=== PATIENT | male | born 1985 | race Caucasian/White ===

== ENCOUNTER 2024-08-14 15:52 | Emergency (ER) | payer SELFPAY ==
--- NOTE | 2024-08-14 17:33 | RAD REPORT ---
EXAM: Chest Single View HISTORY: black stools COMPARISON: None. FINDINGS: LUNGS/PLEURA: The lungs are clear. No pleural effusions or pneumothorax. No pulmonary edema. MEDIASTINUM: The mediastinal silhouette is within normal limits. CARDIAC: The cardiac silhouette is within normal limits. UPPER ABDOMEN: No significant abnormality. BONES: No acute abnormality. LINES/TUBES/OTHER: N/A IMPRESSION: No evidence of acute cardiopulmonary disease.
[2024-08-14 17:50] LABS: Absolute Lymphocytes (CBC) 2.2 K/uL (0.7-4.9); Absolute Monocytes 0.4 K/uL (0.1-1.3); Absolute Neutrophil 4.8 K/uL (1.8-8.0); Basophils % 0.4 % (0-1.3); Eosinophils % 0.5 % (0-4.4); Hematocrit 49.6 % (39.6-49.0); Hemoglobin 17.4 g/dL (13.6-17.9); Lymphocytes % 29.2 % (15.3-44.8); MCH 31.4 pg (27.0-35.0); MCHC 35.1 g/dL (32.0-36.0); MCV 89.2 fL (80-100); MPV 8.8 fL (7.6-11.3); Monocytes % 5.3 % (3.3-12.3); Neutrophils % 64.6 % (41.7-73.7); Nucleated Red Blood Cells % 0.2 % (0-0); Platelets 207 thou/uL (152-406); RBC Red Blood Cell Count 5.55 M/uL (4.33-5.43); Red Cell Distribution Width 12.8 % (12.1-15.2)
[2024-08-14 17:52] LABS: Specific Gravity 1.016 (1.005-1.030); Urine Bilirubin NEGATIVE (Negative); Urine Blood Negative (Negative); Urine Clarity Clear (Clear); Urine Color Light-Yellow (Yellow); Urine Glucose NEGATIVE (Negative); Urine Ketones NEGATIVE (Negative); Urine Microscopic Reflex YN NO UMIC; Urine Nitrite NEGATIVE (Negative); Urine Protein NEGATIVE (Negative); Urine Urobilinogen Normal (Normal)
[2024-08-14 17:58] LABS: PT Prothrombin Time 11.4 SECONDS (9.4-12.5); PTT, Activated Partial Thromb 29.2 SECONDS (24.3-36.9); Protime INR 1.09
[2024-08-14 18:05] LABS: Barbiturates NEGATIVE (NEGATIVE); Benzodiazepines NEGATIVE (NEGATIVE); Cocaine NEGATIVE (NEGATIVE); METHAMPHETAM NEGATIVE (NEGATIVE); Methadone NEGATIVE (NEGATIVE); Opiates NEGATIVE (NEGATIVE); Phencyclidine NEGATIVE (NEGATIVE); THC Cannibis NEGATIVE (NEGATIVE)
[2024-08-14 18:08] LABS: ALT/SGPT 29 U/L (16-61); AST/SGOT 24 U/L (15-37); Albumin/Globulin Ratio 1.1 (1.1-1.8); Alkaline Phosphatase 49 U/L (45-117); Anion Gap 10.8 mEq/L (5.0-15.0); BUN Blood Urea Nitrogen 9 mg/dL (7-18); Bicarbonate 26 mEq/L (21-32); Bilirubin Total 0.5 mg/dL (0.2-1.0); Globulin 3.8 g/dL (2.3-3.5); Glomerular Filtration Rate 86 ml/min (=/>90); Glucose Level 104 mg/dL (74-106); Magnesium 2.1 mg/dL (1.6-2.4); Potassium 3.8 mEq/L (3.5-5.1); Protein, Total 7.8 g/dL (6.4-8.2); Sodium Level 142 mEq/L (136-145)
[2024-08-14 18:17] LABS: Bilirubin Direct < 0.2 mg/dL (0-0.2); Bilirubin Indirect, Calculated 0.3 mg/dL (0.2-0.8); Troponin High Sensitivity < 3.0 pg/mL (<58.9)
--- NOTE | 2024-08-14 19:34 | RAD REPORT ---
EXAMINATION: CT ABDOMEN AND PELVIS WITH CONTRAST CLINICAL INDICATION: Male, 39 years old.ABD PAIN TECHNIQUE: CT abdomen and pelvis was performed, after the administration of IV contrast, [facility]. Axial, sagittal and coronal reconstructions were obtained. One or more of the following dose reduction techniques were used: Automated exposure control, adjustment of the mA and/o r kV according to patient size, and/or iterative reconstruction. Unless otherwise specified, incidental findings do not require dedicated imaging follow-up. [id number]. COMPARISON: No prior exam. FINDINGS: LOWER CHEST: No acute process identified.No significant pericardial effusion. Mild circumferential th ickening of the distal esophagus which could reflect esophagitis. UPPER GI: No significant abnormality. LIVER: Hepatic steatosis, but otherwise unremarkable. GALLBLADDER/BILE DUCTS: No biliary ductal dilatation.? PANCREAS: No mass, ductal dilation, or daphney-pancreatic fluid. SPLEEN: Unremarkable. ADRENALS: No adrenal masses. KIDNEYS AND URETERS: No hydronephrosis.No suspicious renal mass. ABDOMINAL AORTA AND OTHER VESSELS: Normal caliber aorta and IVC. PERITONEUM: No abnormal free fluid. No free air. LYMPH NODES: No pathologic lymphadenopathy. ABDOMINAL WALL: Small fat containing umbilical hernia. Small fat-containing left inguinal hernia. SMALL BOWEL/COLON: Underdistended colon but with suspected wall thickening involving the transverse c olon and descending colon.Normal appendix. URINARY BLADDER: Underdistended but grossly unremarkable. REPRODUCTIVE ORGANS: No pathologic process. MUSCULOSKELETAL: No acute or suspicious osseous abnormality. ADDITIONAL FINDINGS: None. IMPRESSION: Wall thickening extending from the mid transverse colon through the descending colon concerning for m ild colitis. Normal appendix. No other acute findings identified.
[2024-08-14] MEDS ORDERED: AMOX/K CLAV 875 MG TAB ONE (20:28)
[2024-08-14] MEDS ORDERED: dexAMETHasone 10 MG/ML VIAL ONE (20:28)
--- NOTE | 2024-08-14 21:55 | ER ---
Nurse's Notes [facility] Name: Satnam Son Age: 39 yrs Sex: Male : 1985 Arrival Date: 08/14/2024 Time: 15:52 Bed 20 Private MD: Diagnosis: Alcohol abuse with intoxication;Indeterminate colitis Presentation: 08/14 16:01 Chief complaint: Patient states: Black stools for a few days. N/V with dizziness ll1 started today. States he drinks nightly, only 6 shots of vodka this morning. Weak, shaky, unbalanced. Coronavirus screen: Client denies travel out of the [place] in the last 14 days. At this time, the client does not indicate any symptoms associated with coronavirus-19. Ebola Screen: Patient denies travel to an Ebola-affected area in the 21 days before illness onset. Initial Sepsis Screen: Does the patient meet any 2 criteria? No. Patient's initial sepsis screen is negative. Does the patient have a suspected source of infection? No. Patient's initial sepsis screen is negative. Risk Assessment: Do you want to hurt yourself or someone else? Patient reports no desire to harm self or others. Onset of symptoms was August 14, 2024. 16:01 Method Of Arrival: Ambulatory ll1 16:01 Acuity: NANI 3 ll1 Triage Assessment: 16:03 General: Appears distressed, uncomfortable, Behavior is calm, cooperative, appropriate ll1 for age. Pain: Denies pain. Neuro: Reports weakness. GI: Reports rectal bleeding, bloody stool, black stools. Historical: - Allergies: 16:03 No Known Allergies; ll1 - Home Meds: 16:03 None [Active]; ll1 - PMHx: 16:03 Hypertensive disorder; no meds; ll1 - PSHx: 16:04 hernia repair; ll1 - Immunization history:: Adult Immunizations up to date. - Infectious Disease History:: Denies. - Social history:: Smoking status: Patient denies any tobacco usage or history of. Patient uses alcohol, on a daily basis. Screenin:41 [facility] ED Fall Risk Assessment (Adult) History of falling in the last 3 months, kc6 including since admission No falls in past 3 months (0 pts) Confusion or Disorientation No (0 pts) Intoxicated or Sedated No (0 pts) Impaired Gait No (0 pts) Mobility Assist Device Used No (0 pt) Altered Elimination No (0 pt) Score/Fall Risk Level 0 - 2 = Low Risk Oriented to surroundings, Maintained a safe environment, Educated pt \T\ family on fall prevention, incl call for assistance when getting out of bed. Abuse screen: Denies threats or abuse. Denies injuries from another. Nutritional screening: No deficits noted. Tuberculosis screening: No symptoms or risk factors identified. 19:24 Exposure risk/Travel Screening: None identified. mt4 Assessment: 17:41 General: Appears in no apparent distress. comfortable, well groomed, well developed, kc6 Behavior is calm, cooperative, appropriate for age, Smells of alcohol. Pain: Denies pain. Neuro: Level of Consciousness is awake, alert, obeys commands, Oriented to person, place, time, situation, Appropriate for age Reports dizziness, weakness. Cardiovascular: Denies chest pain, shortness of breath, Capillary refill < 3 seconds. Respiratory: Airway is patent Trachea midline Respiratory effort is even, unlabored, Respiratory pattern is regular, symmetrical. GI: Abdomen is round non-distended, Bowel sounds present X 4 quads. Abd is soft and non tender X 4 quads. Reports nausea, vomiting, Patient currently denies abdominal pain, diarrhea. : Urine is clear. EENT: No signs and/or symptoms were reported regarding the EENT system. Derm: No signs and/or symptoms reported regarding the dermatologic system. Skin is intact, is healthy with good turgor, Skin is pink, warm \T\ dry. Musculoskeletal: No signs and/or symptoms reported regarding the musculoskeletal system. Circulation, motion, and sensation intact. Range of motion: intact in all extremities. 18:51 Reassessment: Patient appears in no apparent distress at this time. No changes from kc6 previously documented assessment. Patient and/or family updated on plan of care and expected duration. Pain level reassessed. Patient is alert, oriented x 3, equal unlabored respirations, skin warm/dry/pink. 19:24 Reassessment: Patient and/or family updated on plan of care and expected duration. Pain mt4 level reassessed. General: Appears in no apparent distress. comfortable, Behavior is calm, cooperative, appropriate for age. Pain: Denies pain. Neuro: Level of Consciousness is awake, alert, obeys commands, Oriented to person, place, time, situation, Appropriate for age Service Technician are equal bilaterally Moves all extremities. Gait is steady, Speech is normal, Facial symmetry appears normal. GI: Reports bloody stool, nausea. : Denies burning with urination. Musculoskeletal: Range of motion: intact in all extremities. 21:00 Reassessment: Patient and/or family updated on plan of care and expected duration. Pain mt4 level reassessed. Patient states feeling better. 22:34 Reassessment: Patient and/or family updated on plan of care and expected duration. Pain mt4 level reassessed. Patient states feeling better. Vital Signs: 16:01 BP 138 / 95; Pulse 102; Resp 18; Temp 97.5; Pulse Ox 99% ; Weight 86.18 kg; Height 5 ll1 ft. 10 in. ; Pain 0/10; 19:23 BP 133 / 101; Pulse 95; Resp 17; Temp 99.2(O); Pulse Ox 98% on R/A; mt4 20:00 BP 125 / 92; Pulse 85; Resp 20; Pulse Ox 96% ; mt4 21:00 BP 126 / 79; Pulse 91; Resp 19; Pulse Ox 96% ; mt4 16:01 Body Mass Index 27.26 (86.18 kg, 177.8 cm) ll1 16:01 Pain Scale: Adult ll1 Praneeth Coma Score: 19:24 Eye Response: spontaneous(4). Motor Response: obeys commands(6). Verbal Response: mt4 oriented(5). Total: 15. ED Course: 15:56 Patient arrived in ED. im 15:57 Arm band placed on. ll1 15:58 Kobe Hester PA is PHCP. cp 15:58 Kobe Cerna MD is Attending Physician. cp 16:03 Triage completed. ll1 17:16 XRAY Chest (1 view) In Process Unspecified. EDMS 17:24 Evelyn Galvez, BAKARI is Primary Nurse. kc6 17:40 Initial lab(s) drawn, by me, sent to lab. Urine collected: clean catch specimen, clear. kc6 Inserted saline lock: 20 gauge in right antecubital area, using aseptic technique. Blood collected. Flushed with 10 mL NS. Patient maintains SpO2 saturation greater than 95% on room air. 17:41 Patient has correct armband on for positive identification. Placed in gown. Bed in low kc6 position. Call light in reach. Side rails up X 1. Pulse ox on. NIBP on. Door closed. Noise minimized. Lights dimmed. Pillow given. 17:59 EKG done, by ED staff, reviewed by Kobe NAQVI. kc6 19:01 Report given to BAKARI Velez. kc6 19:05 CT Abd/Pelvis - IV Contrast Only In Process Unspecified. EDMS 19:24 Provided Education on: labs and vitals. Door closed. Lights dimmed. Warm blanket given. mt4 Pillow given. Verbal reassurance given. Assisted to bathroom. 21:54 Martínez Pat MD is Referral Physician. cp 22:35 No provider procedures requiring assistance completed. IV discontinued, intact, mt4 bleeding controlled, No redness/swelling at site. Pressure dressing applied. Patient maintains SpO2 saturation greater than 95% on room air. Administered Medications: 20:55 Drug: Dexamethasone IVP 10 mg IVP once; (not to exceed 40 mg) Route: IVP; Site: right mt4 antecubital; 21:32 Follow up: Response: No adverse reaction mt4 20:56 Drug: Amoxicillin-Clavulanate PO 875 mg PO once Route: PO; mt4 21:32 Follow up: Response: No adverse reaction mt4 Medication: 19:24 VIS not applicable for this client. mt4 Outcome: 21:54 Discharge ordered by . cp 22:35 Condition: stable mt4 22:35 Discharge instructions given to patient, Instructed on discharge instructions, follow up and referral plans. medication usage, Demonstrated understanding of instructions, follow-up care, medications, Prescriptions given X 1, 22:36 Discharged to home mt4 22:36 Patient left the ED. mt4 Signatures: Dispatcher [employer] EDMS Kobe Hester PA PA cp Ginger Reyes RN RN ll1 Evelyn Galvez RN RN kc6 Una Lucero Molinec, BAKARI RN mt4 Corrections: (The following items were deleted from the chart) 16:14 16:01 Chief complaint: Patient states: Black stools for a few days. N/V with dizziness ll1 started today. States he drinks nightly, only 6 shots of vodka this morning. Weak, shaky, unbalanced ll1
--- NOTE | 2024-08-14 21:55 | EDPHYS ---
Physician Documentation [facility] Name: Satnam Son Age: 39 yrs Sex: Male : 1985 Arrival Date: 08/14/2024 Time: 15:52 Bed 20 Private MD: ED Physician Kobe Cerna HPI: 08/14 16:20 This 39 yrs old Male presents to ER via Ambulatory with complaints of Black/Tarry cp Stools, Alcohol Withdrawal. 16:20 The patient presents to the emergency department with rectal bleeding, dark red blood cp with bowel movement with multiple such episodes, intermittent. Onset: The symptoms/episode began/occurred intermittent for past several months, persistent for past few days. 16:20 Abdominal pain: described as waxing and waning. Associated signs and symptoms: cp Pertinent negatives: chest pain, constipation, diarrhea, fever, vomiting. Historical: - Allergies: 16:03 No Known Allergies; ll1 - Home Meds: 16:03 None [Active]; ll1 - PMHx: 16:03 Hypertensive disorder; no meds; ll1 - PSHx: 16:04 hernia repair; ll1 - Immunization history:: Adult Immunizations up to date. - Infectious Disease History:: Denies. - Social history:: Smoking status: Patient denies any tobacco usage or history of. Patient uses alcohol, on a daily basis. ROS: 16:25 Constitutional: Negative for body aches, chills, fever, poor PO intake, cp 16:25 Eyes: Negative for injury, pain, redness, and discharge, cp 16:25 ENT: Negative for drainage from ear(s), ear pain, sore throat, difficulty swallowing, difficulty handling secretions, 16:25 Cardiovascular: Negative for chest pain, 16:25 Respiratory: Negative for cough, shortness of breath, wheezing, 16:25 Abdomen/GI: Positive for dark colored stools, Negative for abdominal pain, vomiting, diarrhea, constipation, 16:25 Neuro: Negative for altered mental status, headache, syncope, near syncope, weakness, 16:25 Psych: Positive for alcohol dependence, 16:25 All other systems are negative, Exam: 16:30 Constitutional: The patient appears in no acute distress, alert, awake, comfortable, cp non-toxic, well developed, well nourished, smells of alcohol, 16:30 Head/Face: Normocephalic, atraumatic. cp 16:30 Eyes: Periorbital structures: appear normal, Conjunctiva: normal, no exudate, no injection, Sclera: no appreciated abnormality, Lids and lashes: appear normal, bilaterally, 16:30 ENT: External ear(s): are unremarkable, Nose: is normal, Mouth: Lips: moist, Oral mucosa: moist, Posterior pharynx: Airway: no evidence of obstruction, patent, erythema, is not appreciated, exudate, is not appreciated, 16:30 Neck: ROM/movement: is normal, is supple, without pain, no range of motions limitations, 16:30 Chest/axilla: Inspection: normal, 16:30 Cardiovascular: Rate: tachycardic, Rhythm: regular, Edema: is not appreciated, JVD: is not appreciated, 16:30 Respiratory: the patient does not display signs of respiratory distress, Respirations: normal, no use of accessory muscles, no retractions, labored breathing, is not present, Breath sounds: are clear throughout, no decreased breath sounds, no stridor, no wheezing, 16:30 Abdomen/GI: Inspection: abdomen appears normal, Bowel sounds: active, all quadrants, Palpation: abdomen is soft and non-tender, in all quadrants, Rectal exam: Stool: dark brown, negative for gross blood, 16:30 Neuro: Orientation: to person, place \T\ time. Mentation: is normal, Motor: moves all fours, strength is normal, Sensation: is normal, 17:55 ECG was reviewed by the Attending Physician. cp Vital Signs: 16:01 BP 138 / 95; Pulse 102; Resp 18; Temp 97.5; Pulse Ox 99% ; Weight 86.18 kg; Height 5 ll1 ft. 10 in. ; Pain 0/10; 19:23 BP 133 / 101; Pulse 95; Resp 17; Temp 99.2(O); Pulse Ox 98% on R/A; mt4 20:00 BP 125 / 92; Pulse 85; Resp 20; Pulse Ox 96% ; mt4 21:00 BP 126 / 79; Pulse 91; Resp 19; Pulse Ox 96% ; mt4 16:01 Body Mass Index 27.26 (86.18 kg, 177.8 cm) 1 16:01 Pain Scale: Adult ll1 Praneeth Coma Score: 19:24 Eye Response: spontaneous(4). Motor Response: obeys commands(6). Verbal Response: mt4 oriented(5). Total: 15. MDM: 16:11 Medical Screening Exam initiated cp 17:00 Differential diagnosis: gastritis, diverticulitis, hemorrhoids, varices, upper GI cp bleed, lower GI bleed, anemia, hepatic failure. 21:53 Data reviewed: vital signs, nurses notes, lab test result(s), EKG, radiologic studies, cp CT scan, plain films, and as a result, I will discharge patient. 21:53 Consideration of Admission/Observation Escalation of care including cp admission/observation considered. Independent interpretation of the following test(s) in the Emergency Department EKG: See my EKG interpretation above. Care significantly affected by the following chronic conditions: Hypertension. Counseling: I had a detailed discussion with the patient and/or guardian regarding the historical points, exam findings, and any diagnostic results supporting the discharge/admit diagnosis, lab results, radiology results, to return to the emergency department if symptoms worsen or persist or if there are any questions or concerns that arise at home. ED course: VSS. Labs and radiology studies reviewed. H/H stable, no black/tarry and/or grossly bloody stools on exam. Will discharge to home for continued monitoring. 08/14 16:16 Order name: Basic Metabolic Panel; Complete Time: 18:23 cp 08/14 18:24 Interpretation: Normal except: CL 109; GFR 86. cp 08/14 16:16 Order name: CBC with Diff; Complete Time: 18:23 cp 08/14 18:24 Interpretation: Normal except: RBC 5.55; HCT 49.6. cp 08/14 16:16 Order name: LFT's; Complete Time: 18:23 cp 08/14 18:24 Interpretation: Normal except: GLOB 3.8. cp 08/14 16:16 Order name: Magnesium; Complete Time: 18:23 cp 08/14 16:16 Order name: PT-INR; Complete Time: 18:23 cp 08/14 16:16 Order name: Troponin HS; Complete Time: 18:24 cp 08/14 16:16 Order name: Ptt, Activated; Complete Time: 18:24 cp 08/14 16:16 Order name: ETOH Level; Complete Time: 18:23 cp 08/14 18:24 Interpretation: Normal except: ETOH 224. cp 08/14 16:16 Order name: UDS; Complete Time: 18:24 08/14 16:16 Order name: Urinalysis w/ reflexes; Complete Time: 18:24 08/14 16:16 Order name: XRAY Chest (1 view); Complete Time: 18:24 08/14 18:25 Order name: CT Abd/Pelvis - IV Contrast Only; Complete Time: 19:38 08/14 19:39 Interpretation: Report reviewed. 08/14 16:16 Order name: EKG; Complete Time: 16:17 08/14 16:16 Order name: Cardiac monitoring; Complete Time: 17:59 08/14 16:16 Order name: EKG - Nurse/Tech; Complete Time: 17:59 08/14 16:16 Order name: IV Saline Lock; Complete Time: 17:40 08/14 16:16 Order name: Labs collected and sent; Complete Time: 17:40 08/14 16:16 Order name: O2 Per Protocol; Complete Time: 17:40 08/14 16:16 Order name: O2 Sat Monitoring; Complete Time: 17:40 EC:55 Rate is 94 beats/min. Rhythm is regular. MO interval is normal. QRS interval is cp prolonged at 140 msec. QT interval is normal. T waves are Inverted in lead aVR. Interpreted by me. Reviewed by me. Administered Medications: 20:55 Drug: Dexamethasone IVP 10 mg IVP once; (not to exceed 40 mg) Route: IVP; Site: right mt4 antecubital; 21:32 Follow up: Response: No adverse reaction mt4 20:56 Drug: Amoxicillin-Clavulanate PO 875 mg PO once Route: PO; mt4 21:32 Follow up: Response: No adverse reaction mt4 Disposition Summary: 08/14/24 21:54 Discharge Ordered Notes: Location: Home cp Problem: new cp Symptoms: have improved cp Condition: Stable cp Diagnosis - Alcohol abuse with intoxication cp - Indeterminate colitis cp Followup: cp - With: Martínez Pat MD - When: 5 - 6 days - Reason: colitis Discharge Instructions: - Discharge Summary Sheet cp - Alcohol Intoxication cp - Alcohol Abuse and Nutrition cp - Colitis cp - Alcohol Abuse and Dependence Information, Adult cp Forms: - Medication Reconciliation Form cp - Antibiotic Education cp - Prescription Opioid Use cp - Patient Portal Instructions cp - Leadership Thank You Letter Prescriptions: - Augmentin 875-125 mg Oral Tablet - take 1 tablet ORAL route every 12 hours for 10 days; 20 tablet; Refills: 0, cp Product Selection Permitted Addendum: 08/20/2024 07:24 Co-signature as Attending Physician, Kobe Cerna MD I agree with the assessment and c urrutia plan of care. Signatures: Dispatcher [employer] EDMT Kobe Cerna MD MD cha Page, Corey, PA PA cp Lewis, Lynsay, RN RN ll1 Rosie Evans RN RN mt4 Corrections: (The following items were deleted from the chart) 08/14 19:42 16:20 Onset: The symptoms/episode began/occurred for past several months, cp cp 08/15 01:18 08/14 18:33 ECG was reviewed by the Attending Physician. cp 08/15 00:18 08/14 18:33 Rate is 68 beats/min. Rhythm is regular. MO interval is normal. QRS cp interval is normal. QT interval is normal. T waves are Inverted in lead aVR. Interpreted by me. Reviewed by me. cp
[2024-08-15 03:21] VITALS: BP 126/79; TEMP 99.2; O2SAT 96
== END 2024-08-14 22:36 | disposition home or self-care (01) ==
LOC: ER 15:52
DX: K52.3 Indeterminate colitis (principal); F10.129 Alcohol abuse with intoxication, unspecified
CPT/HCPCS: 36415; 71045; 74177; 80048; 80076; 80307; 81003; 82077; 83735; 84484; 85025; 85610; 85730; 96374; 99285; J1100; Q9967